=== PATIENT | female | born 1990 | race African-American/Black ===

== ENCOUNTER 2016-04-05 22:07 | Emergency (ER) | payer OTHER ==
[~2016-04-05] VITALS: Ht 160 cm; Wt 75.0 kg
[~2016-04-05 22:07] MED LIST: CITA40TA13 PO; HYDR2TAB28 PO; INSU100V7 SUBQ; LOV100 SUBQ; NORE1PAT7 TD; OMEP20CA11 PO
[2016-04-05 22:16] VITALS: BP 123/88; PULSE 77; RESP 16; O2SAT 100
--- NOTE | 2016-04-05 22:39 | ED.REPORT ---
HPI-Abd Pain F Under 40 Date of Service Apr 05, 2016 ED Provider: Jace Green DO A 25 year old female with a history of necrotizing pancreatitis, biliary stent, and pancreatic drain placement presents to the ED complaining of upper abdominal pain. The pt began experiencing abdominal pain one week ago. At that time she was also experiencing diarrhea, but this has resolved. Over the last three days, the pain has worsened and she has begun vomiting. She denies fever or dysuria. The pt suspects that these symptoms may be due to pancreatitis, and states that this would be the "first relapse in a while." The pt's toy designer, Dr. Olguin, has ordered labs and a CT scan that have not yet been completed. Nursing Notes Stated Complaint: POSS PANCREATITIS Chief Complaint: Female Abdominal Pain Nursing Notes Reviewed: Yes Allergies: Coded Allergies: No Known Allergies (Unverified , 04/05/16) Scheduled Citalopram (Citalopram) 40 Mg Tablet 40 MG PO DAILY Insulin Glargine (Lantus U100 Insulin Vial) 100 Unit/Ml Vial 5 UNIT SUBQ HS Norelgestromin/Ethin.estradiol (Xulane Patch) 1 Each Patch.tdwk 1 EACH TD WEEKLY change on Mondays Omeprazole (Omeprazole) 20 Mg Capsule.dr 20 MG PO DAILY Scheduled PRN Enoxaparin (Lovenox) 100 Mg/Ml Syringe 90 MG SUBQ BID PRN PRN blood clot Hydromorphone (Hydromorphone) 2 Mg Tablet 2 MG PO QID PRN PRN Pain General Time Seen by MD: 22:39 Chief Complaint Abdominal pain Hx Obtained From: Patient, Other family... (Mother) Arrived By: Walk-in Sudden in Onset?: No Onset Occurred: 1 week ago Symptom Duration: Since onset Recent Healthcare: No recent hospitalization, Recent doctor visit Similar Sx Previous: Yes Past Medical History Past Medical History Notes: Extruding Press Adjuster: Dr. 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 Past Medical History Necrotizing pancreatitis Reports: Depression Past Surgical History Pancreatic drain placed Biliary stent Family History gall stones Smoking History Never Smoker Social History Alcohol Use: Denies alcohol use Drug Use: THC Other Social History: Good social support Ambulatory Status Independent Review of Systems Constitutional: Denies: Fever Respiratory: Denies: Non-productive cough, Shortness of breath Cardiovascular: Denies: Chest pain GI: Reports: Abdominal pain, Diarrhea (resolved), Nausea, Vomiting Female: Denies: Dysuria Musculoskeletal: Denies: Back pain, Neck pain Complete sys rev & neg: except as marked. Physical Exam Initial Vital Signs Vital Signs (First) Date Time Temp Pulse Resp B/P Pulse Ox O2 Delivery O2 Flow Rate FiO2 04/05/16 22:16 36.9 77 16 123/88 100 Room Air Initial VS: Reviewed General/Constitutional: Awake, Alert Respiratory / Chest: Atraumatic, Breath sounds NL, Breath sounds = bilat, No respiratory distress Cardiovascular: Heart rate NL, Regular rhythm, Heart sounds NL Abdomen: Atraumatic, Soft epigastric tenderness Back: Atraumatic, Full range of motion Head / Eyes: Atraumatic, Normocephalic, PERRL, EOMI ENT: Atraumatic, Airway patent, Mucous membranes moist Skin: Atraumatic, Color NL, No rash, Warm, Dry Neurologic: Oriented X3, Speech NL, No motor deficits, No sensory deficits Neck: Atraumatic, Supple, Full range of motion Upper Extremity / MS: Atraumatic, Full range of motion Lower Extremity / Pelvis / MS: Atraumatic, Full range of motion Psychiatric: Affect NL, Mood NL Interpretation & Diagnostics Lab Results Interpretation Result Diagram: 04/05/16 2300 04/05/16 2300 Test 04/05/16 23:00 White Blood Count 9.7th/mm3 (3.8-10.1) Red Blood Count 4.90mil/mm3 (3.90-5.20) Hemoglobin 12.9g/dL (12.0-15.6) Hematocrit 39.5% (35.0-46.0) Mean Corpuscular Volume 80.6fL (81-100) Mean Corpuscular Hemoglobin 26.3pg (27.0-35.0) Mean Corpuscular Hemoglobin Concent 32.7% (32.0-37.0) Red Cell Distribution Width 16.6% (12.3-15.4) Platelet Count 209bil/L (150-400) Neutrophils (%) (Auto) 77.8% (40-74) Lymphocytes (%) (Auto) 14.7% (14-46) Monocytes (%) (Auto) 6.5% (4-12) Eosinophils (%) (Auto) 0.4% (0-5) Basophils (%) (Auto) 0.3% (0-3) Band Neutrophils % 0% (1-5) Prothrombin Time 11.1sec (8.1-12.5) Prothromb Time International Ratio 1.04ratio Sodium Level 127mEq/L (134-144) Potassium Level 4.5mEq/L (3.5-5.2) Chloride Level 82mEq/L (97-108) Carbon Dioxide Level 30mmol/L (18-29) Blood Urea Nitrogen 7mg/dL (6-20) Creatinine 0.62mg/dL (0.57-1.00) Estimat Glomerular Filtration Rate 148mL/min (>59) Glucose Level 740mg/dL (60-99) Calcium Level 9.7mg/dL (8.5-10.1) Magnesium Level 2.0mg/dL (1.6-2.6) Total Bilirubin 0.4mg/dL (0.0-1.2) Aspartate Amino Transf (AST/SGOT) 21U/L (0-50) Alanine Aminotransferase (ALT/SGPT) 24U/L (0-32) Alkaline Phosphatase 195U/L (25-150) Total Protein 7.7g/dL (6.4-8.4) Albumin 4.0g/dL (3.4-5.0) Lipase 164U/L (13-60) Hold Terrell Top Tube Received (Received) Ketones Negative (Negative) CT Abd / Pelvis Interpretation CONCLUSION: Evidence for pancreatitis with at least 3 pseudocysts or abscess collections depending on the clinical presentation. There is a drain in the body of the pancreas draining into the stomach. There is cholelithiasis with mild biliary dilation but the patient does have a biliary drain in place. Interpretation / Wet Read by: Interpret - Radiologist Pulse Oximetry Interpretation Pulse Oximetry Interpretation: 100% on room air Pulse Oximetry: Pulse Ox normal Re-Eval/Medical Decision Med Decision/Clinical Course I spoke with Dr. Sophie Mendez, salmon gillnet vessel operator for the patient's toy designer, who recommends transfer to [facility] for GI treatment and work up for pancreatic pseudocyst versus pancreatic abscess. Patient transfer to [facility] is accepted by Dr. Gardner, [facility] hospitalist. Patient is fluid resuscitated and looks significantly better. Her blood sugar is 380 and transfer is pending. Source of Hx: Old records Re-Evaluation/Progress : Time of Eval: 02:23 Patient Status: Condition improved Re-Evaluation/Progress Note: Pt rechecked, who is stable. She is informed of her radiology results, diagnosis, and the need for transfer to . The pt understands and agrees with the plan. All questions are addressed at this time. Consultation #1: Referral / Consult Name: EMMANUEL GARDNER MD Call Returned at: 01:34 Spinning Mule Operator: Agrees with eval, Agrees with plan Note: Spoke to Dr. Sophie Mendez, gastrologist salmon gillnet vessel operator for Dr. 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, regarding pt's case. Dr. Mendez recommends transfer to [facility]. Consultation #2: Referral / Consult Name: EMMANUEL GARDNER MD Call Returned at: 02:05 Spinning Mule Operator: Agrees with eval, Agrees with plan Note: Spoke to Dr. Gardner, [facility] hospitalist. Dr. Gardner accepts pt's transfer to . Counseled Regarding: Diagnosis, Lab results, Need for transfer Discharge & Departure Primary Impression: Pancreatitis Chronicity: acute Pancreatitis type: unspecified pancreatitis type Qualified Code: K85.9 - Acute pancreatitis, unspecified Additional Impression: Pancreatic pseudocyst Disposition: Transfer, Acute Care Facility Discharge Condition All VS Reviewed: Yes Condition: Stable Referrals: OTHER,PHYSICIAN (PCP) Scribe Attestation Portions of this note were transcribed by Alma Sainz. I, Dr. Green personally performed the history, physical exam and medical decision-making; I reviewed and confirmed the accuracy of the information in the transcribed note. Signed by: Chang Rice, 04/06/2016 and 0242. Jace Green DO Apr 05, 2016 22:39 ALMA SAINZ Apr 05, 2016 23:25
[2016-04-05] MEDS ORDERED: Ondansetron 2 mg/mL 2 mL Inj IVPUSH PRN (23:20)
[2016-04-05] MEDS ORDERED: 0.9% Sodium Chloride 1,000 ML IV SCH (23:20)
[2016-04-05] MEDS ORDERED: HYDROmorphone 0.5 mg/0.5 mL iSecure Syringe IVPUSH PRN (23:20)
[2016-04-05 23:33] LABS: INR 1.04 ratio
[2016-04-05 23:34] LABS: Mean Corpuscular Hemoglobin 26.3 pg (27.0-35.0); Mean Corpuscular Volume 80.6 fL (81-100); NEUTROPHILS % (AUTO) 77.8 % (40-74); Platelet Count 209 bil/L (150-400)
[2016-04-05 23:35] LABS: BASOPHILS % (AUTO) 0.3 % (0-3); EOSINOPHILS % (AUTO) 0.4 % (0-5); MONOCYTES % (AUTO) 6.5 % (4-12)
[2016-04-06] MEDS ORDERED: Insulin Human REGular-Omnicell 100 Unit/mL IV ONE (02:00)
[2016-04-06 03:26] VITALS: BP 122/64; PULSE 68; RESP 18; O2SAT 96
--- NOTE | 2016-04-06 13:45 | DRSVH ---
PROCEDURE: CT ABDOMEN AND PELVIS WITH CONTRAST ([id number]) INDICATIONS: abdominal pain, recent pancreatitis TECHNIQUE: After the administration of intravenous contrast, 5 mm thick sections acquired from the diaphragm to the symphysis. 5 mm coronal and sagittal reformats were acquired. For radiation dose reduction, the following was used: automated exposure control, adjustment of mA and/or kV according to patient siz e. COMPARISON: [facility], CT, CT ABD PELVIS W CON, 08/04/2015, 22:43. [facility], CT, CT ABD PELVIS W CON, 08/13/2015, 13:33. FINDINGS: Image quality: Excellent. ABDOMEN: Lung bases: Lung bases are clear. Heart size is normal. Solid organs: Liver and spleen are normal in size and enhancement. The gallbladder is contracted. An ill-defined cholesterol stone is present within the gallbladder fundus. The gallbladder wall appears thickened. There is trace intrahepatic biliary ductal dilatation. A biliary stent is present within the common bile duct which is mildly dilated. The portal vein is patent. The pancreas demonstrates pa tchy, heterogeneous enhancement. There is trace peripancreatic fat stranding, markedly decreased when compared with the prior CT dated 08/13/15. Trace fluid is also present along the paracolic gutters bi laterally. A pancreatic/gastric stent is present extending from near the tail of the pancreas into th e gastric fundus. 3 rim-enhancing peripancreatic fluid collections are present. One near the tail of pancreas which measures 2.3 x 2.3 x 6.2 cm. One at the pancreatic head which measures 11 mm in diamet er, and one in the uncinate process which measures 1.9 x 1.7 x 1.9 cm. No adrenal nodules. There is m ild right hydronephrosis which is new when compared with prior CT dated 08/13/15. No left hydronephros is. Kidneys are symmetric in size and demonstrate symmetric enhancement. No ureterolithiasis or hydro ureter. Peritoneum and bowel: The stomach is partially fluid-filled. There are extensive gastric varices. Margarito wel loops demonstrate normal wall thickness and caliber. The appendix is thin walled and gas filled. No free fluid or air. Nodes and vessels: No retroperitoneal or mesenteric adenopathy by size criteria. Aorta and inferior vena cava are normal in size. Miscellaneous: No ventral hernias. PELVIS: Genitourinary: Bladder wall thickness is normal. The uterus is grossly normal. The right ovary is n ot well visualized. Multiple small cystic lesions are present on the left ovary which may be physiolo gic in a premenopausal female. Miscellaneous: No inguinal hernias or adenopathy. Bones: No suspicious bony lesions. No vertebral body compression fractures. IMPRESSION: 1. 3 rim-enhancing peripancreatic fluid collections. These likely represent small, organized abscesse s resulting from the prior acute pancreatitis dated August,. 2. Trace peripancreatic free fluid or fluid along the paracolic gutters. This finding is suspicious f or recurrent acute pancreatitis. 3. Cholelithiasis. There is mild intra-and extrahepatic biliary dilatation and a stent is present wit hin the common bile duct. These findings are concordant with the overnight interpretation. 3. Extensive gastric varices which were not visualized on the prior studies. The significance of this finding is unclear, but can be associated with portal hypertension. Of note, the portal vein is hughes nt. Dictated by: Ximena Davis M.D. on 04/06/2016 at 10:45 Approved by: Ximena Davis M.D. on 04/06/2016 at 13:42
== END 2016-04-06 02:46 | disposition short-term general hospital (02) ==
LOC: SED 22:07
DX: K85.91 Acute pancreatitis with uninfected necrosis, unspecified (principal); K86.3 Pseudocyst of pancreas; Z79.4 Long term (current) use of insulin
CPT/HCPCS: 36415; 74177; 80053; 81025; 82009; 83690; 83735; 85025; 85610; 96361; 96374; 96375; 99285; J1170; J1815; J2405; J7030; Q9967

== ENCOUNTER 2016-06-11 12:01 | Inpatient (IN) | payer OTHER ==
[~2016-06-11] VITALS: Ht 160 cm; Wt 73.8 kg
[2016-06-11 12:07] VITALS: BP 110/74; PULSE 105; RESP 20; O2SAT 94
--- NOTE | 2016-06-11 12:22 | ED.REPORT ---
HPI-General Illness Date of Service June 11, 2016 ED Provider: Avtar Gonzalez DO Pt is a 25 y/o female w/ a hx of necrotizing pancreatitis in August, IDDM, presenting to the ED c/o epigastric abdominal pain and hyperglycemia onset 3 days ago. She went to see her PCP today at which time she was found to have a blood glucose of 450 along with the presence of large ketones in the urine. The patient saw her PCP on 06/04 at which time her labs indicated blood glucose of 660 with DKA and she was urged to go to the nearest ED although she opted to go home and try to manage it herself with oral fluids and insulin. Her old blood glucose monitor was showing her blood glucose to be in the low 200s although the new monitor showed her blood glucose to be in the 500s. She ran out of insulin 3 days ago and due to some complication with the pharmacy she has not had any since that time. She has been attempting to to decrease her blood sugars by means of dietary changes although there has been no change. She has been taking upwards of 15 units of short-acting insulin and 10 units of long- acting insulin within the past week. Her abdominal pain is exacerbated by eating. She c/o associated chills. Pt denies fever, diarrhea, SOB, nausea, vomiting. Outpatient lab results taken 06/04 significant as below: Sodium: 128 Chloride: 84 CO2: 20 Anion gap: 24 Glucose: 660 BUN: 15 Creatinine: 0.88 Hemoglobin A1C: 16.9% Nursing Notes Stated Complaint: HIGH BLOOD SUGAR,PANCREATITIS Chief Complaint: Female Abdominal Pain Nursing Notes Reviewed: Yes Allergies: Coded Allergies: No Known Allergies (Unverified , 06/11/16) Scheduled Bupropion ER (Wellbutrin SR) 150 Mg Tablet.er 150 MG PO DAILY Ferrous Sulfate (Ferrous Sulfate) 325 Mg Tablet 325 MG PO DAILY Insulin Glargine (Lantus U100 Solostar Insulin Pen) 100 Unit/1 Ml Insuln.pen 15 UNITS SUBQ HS Nystatin (Nystatin) 60 Applic/15 Gm Cream 1 APPLIC TRANSDERM TID Potassium Gluconate (Potassium) 99 Mg Tablet 99 MG PO DAILY Scheduled PRN Hydromorphone (Hydromorphone) 2 Mg Tablet 2-4 MG PO q4 hours PRN PRN Pain Insulin Regular, Human (HUMulin-R U100 Insulin Vial) 100 Unit/1 Ml Vial 10-15 UNITS SUBQ TIDWM PRN PRN AD General Time Seen by MD: 12:21 Chief Complaint Abdominal pain Hx Obtained From: Patient Arrived By: Walk-in Sudden in Onset?: No Onset Occurred: 3 days ago Symptom Duration: Since onset Location: : Abdomen Quality: Painful Radiation: : Does not radiate Severity: Current: Mild Severity: Maximum: Moderate Similar Sx Previous: Yes Past Medical History Past Medical History 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 Past Medical History IDDM Depression Hx acute hepatitis Hx pseudocyst formation Cholelithiasis Hx portal vein thrombosis Hx necrotizing pancreatitis Past Surgical History Pancreatic drain placed Biliary stent Family History gall stones Smoking History Never Smoker Social History Alcohol Use: Denies alcohol use Drug Use: THC Other Social History: Good social support Ambulatory Status Independent Review of Systems Full Review of Systems Constitutional: Reports: Chills, Denies: Fever Respiratory: Denies: Non-productive cough, Shortness of breath Cardiovascular: Denies: Chest pain, Dyspnea on exertion GI: Reports: Abdominal pain, Denies: Diarrhea, Nausea, Vomiting Complete sys rev & neg: except as marked. Physical Exam Vital Signs Vital Signs Date Time Temp Pulse Resp B/P Pulse Ox O2 Delivery O2 Flow Rate FiO2 06/11/16 12:07 36.2 105 20 110/74 94 Room Air Initial VS: Reviewed, Vital signs abnormal Head / Eyes: Atraumatic, Normocephalic, PERRL ENT: Mucous membranes moist, Conjunctiva normal, No scleral icterus Neck: Supple, Full range of motion Respiratory: Breath sounds normal, Clear to auscultation, No respiratory distress Cardiovascular: Regular rate & rhythm, Heart sounds normal, Intact distal pulses Extremities: Vascular intact, Neuro intact, No swelling, No tenderness Skin: Warm, Dry, No cyanosis Neurologic: Alert, Oriented, Nonfocal Psychiatric: Mood/affect normal, Behavior normal, Normal thought content General/Constitutional: Awake, Alert, No acute distress, Cooperative, Not toxic appearing Abdomen: Atraumatic, Soft, No guarding, No rebound, No distention, No palpable mass Tenderness/Guarding/Rebound: Positive: Tender LUQ... (Mild) Interpretation & Diagnostics Lab Results Interpretation Result Diagram: 06/11/16 1221 06/11/16 1221 Test 06/11/16 12:21 06/11/16 12:59 White Blood Count 8.8th/mm3 (3.8-10.1) Red Blood Count 4.90mil/mm3 (3.90-5.20) Hemoglobin 14.4g/dL (12.0-15.6) Hematocrit 44.5% (35.0-46.0) Mean Corpuscular Volume 90.8fL (81-100) Mean Corpuscular Hemoglobin 29.4pg (27.0-35.0) Mean Corpuscular Hemoglobin Concent 32.4% (32.0-37.0) Red Cell Distribution Width 14.9% (12.3-15.4) Platelet Count 249bil/L (150-400) Neutrophils (%) (Auto) 72.1% (40-74) Lymphocytes (%) (Auto) 20.0% (14-46) Monocytes (%) (Auto) 6.8% (4-12) Eosinophils (%) (Auto) 0.3% (0-5) Basophils (%) (Auto) 0.3% (0-3) Sodium Level 125mEq/L (134-144) Potassium Level 4.6mEq/L (3.5-5.2) Chloride Level 77mEq/L (97-108) Carbon Dioxide Level 21mmol/L (18-29) Blood Urea Nitrogen 19mg/dL (6-20) Creatinine 0.77mg/dL (0.57-1.00) Estimat Glomerular Filtration Rate 116mL/min (>59) Glucose Level 928mg/dL (60-99) Lactic Acid Level 2.8mmol/L (0.4-2.0) Calcium Level 10.0mg/dL (8.5-10.1) Magnesium Level 1.9mg/dL (1.6-2.6) Total Bilirubin 0.6mg/dL (0.0-1.2) Aspartate Amino Transf (AST/SGOT) 13U/L (0-50) Alanine Aminotransferase (ALT/SGPT) 15U/L (0-32) Alkaline Phosphatase 96U/L (25-150) Total Protein 8.4g/dL (6.4-8.4) Albumin 4.6g/dL (3.4-5.0) Lipase 117U/L (13-60) Ketones Small (Negative) Urine Color Straw (YELLOW) Urine Appearance Hazy (CLEAR,HAZY) Urine pH 5.5 (5.0-8.0) Urine Specific [place] 1.005 (1.003-1.035) Urine Protein Negativemg/dL (NEG,TRACE) Urine Glucose (UA) >1000mg/dL (NEGATIVE) Urine Ketones >80mg/dL (NEGATIVE) Urine Occult Blood Negative (NEGATIVE) Urine Nitrite Negative (NEGATIVE) Urine Bilirubin Negative (NEGATIVE) Urine Urobilinogen Normalmg/dL (NORMAL) Urine Leukocyte Esterase Negative (NEGATIVE) Urine RBC 0-2/hpf (0-2) Urine WBC 0-5/hpf (0-5) Urine Epithelial Cells Occasional/hpf (NONE-MOD) Urine Crystals None seen (NONE SEEN) Urine Bacteria Few/hpf (NONE-FEW) Urine Hyaline Casts None/lpf (NONE) Urine Granular Casts None seen (NONE SEEN) Urine Waxy Casts None seen (NONE SEEN) Urine Red Blood Cell Casts None seen (NONE SEEN) Urine White Blood Cell Casts None seen (NONE SEEN) Urine Mucus None seen (None Seen) Urine Trichomonas None seen (NONE SEEN) Urine Yeast None (NONE SEEN) Urinalysis Comment None Urine Culture Reflexed Not indicated Lab Results Interpretation: Venous blood gas 12:39: pH ____7.298 - pCO2 ___48.2__ -mmHg pO2 ___31.4__ -mmHg HCO3- ___22.9__ -mmol/L ABE ___-3.2__ -mmol/L tHb ___12.3__ -g/dL O2Hb ___50.7__ -% COHb ____1.5__ -% MetHb ____1.2__ -% sO2 ___52.1__ -% FIO2 ___21.0__ -% ECG Interpretation Time: 12:55 Interpreted by: ED physician Normal ECG Interpretation: Normal ECG w/ rate of... (92), Normal rate, Normal sinus rhythm, No acute ischemic changes, Normal QRS, Normal axis, Normal intervals, No change from prior ECGs, Adequate tracing Re-Eval/Medical Decision Med Decision/Clinical Course DKA due to lack of insulin, will admit on insulin drip. Source of Hx: Old records Time of Eval: 13:46 Re-Evaluation/Progress Note: Pt rechecked. Informed pt of need for admission due to DKA. Pt understands and agrees with plan for admission. All questions addressed. Consultation : Referral / Consult Name: Jeremy Murray MD Consulted With: Hospitalist Call Returned at: 14:38 Traffic Sign Erection Supervisor: Will see patient, Agrees with eval, Agrees with plan, Accepts admit Counseled Regarding: Diagnosis, Lab results, Need for admission Discharge & Departure Primary Impression: DKA (diabetic ketoacidosis) Diabetes mellitus type: type 1 Diabetes mellitus complication detail: without coma Qualified Code: E10.10 - Type 1 diabetes mellitus with ketoacidosis without coma Disposition: ADMITTED TO HOSPITAL Discharge Condition All VS Reviewed: Yes Condition: Stable Referrals: OTHER,PHYSICIAN (PCP) Crit Care Except Billable Proc Time Spent: 30-74 minutes Services Performed: Patient management by me, Time spent at bedside, Reviewing test results Critical Care Notes: See MDM Scribe Attestation Portions of this note were transcribed by Jake Aguirre. I, Dr. Gonzalez personally performed the history, physical exam and medical decision-making; I reviewed and confirmed the accuracy of the information in the transcribed note. Signed by Chang Coffey, 06/11/16 - 0240 Avtar Gonzalez DO June 11, 2016 12:22 JAKE AGUIRRE June 11, 2016 12:52
[2016-06-11] MEDS ORDERED: 0.9% Sodium Chloride 1,000 ML IV ONE ×2 (12:23→12:25)
[2016-06-11] MEDS ORDERED: Ondansetron 2 mg/mL 2 mL Inj IV PRN (12:25)
[2016-06-11] MEDS ORDERED: HYDROmorphone 0.5 mg/0.5 mL iSecure Syringe IVPUSH PRN (12:25)
--- NOTE | 2016-06-11 12:46 | ABG ---
DateTimeAnalyzed 12:41:00 -_ pH ____7.298 - pCO2 ___48.2__ -mmHg pO2 ___31.4__ -mmHg HCO3- ___22.9__ -mmol/L ABE ___-3.2__ -mmol/L tHb ___12.3__ -g/dL O2Hb ___50.7__ -% COHb ____1.5__ -% MetHb ____1.2__ -% sO2 ___52.1__ -% FIO2 ___21.0__ -% Drawn By rn - Date/Time Notified____ 12:46:00 -_ Oxygen Device 1 _ROOM AIR - Notified By jj - Notified Whom dr okelley - B 763 -mmHg tO2 ____8.8__ -Vol% Jeremy test N/A -
[2016-06-11 12:49] LABS: BASOPHILS % (AUTO) 0.3 % (0-3); EOSINOPHILS % (AUTO) 0.3 % (0-5); MONOCYTES % (AUTO) 6.8 % (4-12); Mean Corpuscular Hemoglobin 29.4 pg (27.0-35.0); Mean Corpuscular Volume 90.8 fL (81-100); NEUTROPHILS % (AUTO) 72.1 % (40-74); Platelet Count 249 bil/L (150-400)
[2016-06-11 13:19] LABS: APPEARANCE,URINE HAZY (CLEAR,HAZY); COLOR,URINE STRAW (YELLOW)
[2016-06-11 13:20] LABS: OCCULT BLOOD,URINE NEGATIVE (NEGATIVE); PH,URINE 5.5 (5.0-8.0); UROBILINOGEN,URINE NORMAL (NORMAL)
[2016-06-11 13:27] LABS: Lipase 117 U/L (13-60); Magnesium 1.9 mg/dL (1.6-2.6)
[2016-06-11] MEDS ORDERED: Insulin Human REGular Inj 100 UNIT in 0.9% Sodium Chloride 100 ML IV SCH (13:35)
[2016-06-11] MEDS ORDERED: MYCC TRANSDERM (14:41)
[2016-06-11] MEDS ORDERED: BUPR150T8 PO (14:41)
[2016-06-11] MEDS ORDERED: INSU100I13 SUBQ (14:42)
[2016-06-11] MEDS ORDERED: FERR-83 PO (14:42)
[2016-06-11] MEDS ORDERED: INSU100V28 SUBQ (14:42)
[2016-06-11] MEDS ORDERED: POTA99TA21 PO (14:42)
[2016-06-11] MEDS ORDERED: Ondansetron 2 mg/mL 2 mL Inj IVPUSH PRN ×2 (14:50→15:30)
[2016-06-11] MEDS ORDERED: Alum-Mag Hydrox-Simeth 30 mL Suspension PO PRN ×2 (14:50→15:30)
[2016-06-11 15:06] VITALS: BP 102/65; PULSE 95; RESP 20; O2SAT 99
[2016-06-11] MEDS ORDERED: Senna-Docusate 8.6-50 mg Tablet PO PRN (15:30)
[2016-06-11] MEDS ORDERED: Polyethylene Glycol (PEG) 17 Gm Powder PO PRN (15:30)
--- NOTE | 2016-06-11 15:33 | NUR ---
Pt admitted to CCU from ER at 1530hrs Pt denies any pain or nausea and vomiting at this time. VS are stable although HR is elevated at 96 sinus, she is receiving IVF's and insulin IV now per DKA protocol.
[2016-06-11 16:00] VITALS: BP 98/58; PULSE 92; RESP 18; O2SAT 96
[2016-06-11] MEDS ORDERED: Insulin Human REGular Inj 100 UNIT in 0.9% Sodium Chloride-Pha MIX 100 ML IV SCH (16:00)
[2016-06-11 17:53] LABS: Phosphorus 2.8 mg/dL (2.5-4.9)
--- NOTE | 2016-06-11 18:16 | PCM.HPMED ---
Subjective Date of Service June 11, 2016 Primary Provider: Admitting Physician: Jeremy Murray MD Primary Care Physician: Other,Physician Attending Physician: Jeremy Murray MD Chief Complaint: Abdominal pain and hyperglycemia History of Present Illness: Vishnu Ratliff is a 25 year old woman with past medical history significant for necrotizing pancreatitis due to gall stones in August 2015, subsequent insulin -dependent diabetes mellitus, who presented to the [facility] ED with complaint of mild abdominal pain and severe hyperglycemia that first started 6 days ago. The patient was feeling well and was seen by her PCP for a routine appointment on at which time she was found to have a blood glucose of 660 with a large amount of ketones in the urine. Her PCP referred her to the ED but she refused as she was feeling fine and wanted to control her blood sugar herself at home. As she tried to manage her DKA at home, her glucose monitor showed readings of around 200 however when rechecked at her PCP's office she was noted to have glucose in the 500s. She realized she was under-treating her sugars and increased her Lantus from 5 units to 10 units. She subsequently ran out of insulin due to issues at the pharmacy. She has been attempting to to decrease her blood sugars by means of dietary changes although there has been no change. She has been taking upwards of 15 units of short-acting insulin and 10 units of long-acting insulin within the past week. Overall she states she feels fine and she would not have come in if her sugars were not elevated and she was not urged by her PCP. She denies any significant abdominal pain, shortness of breath , cough, fevers, chills, chest pain, vomiting, nausea or diarrhea. Outpatient lab results taken 06/04 significant as below: Sodium: 128 Chloride: 84 CO2: 20 Anion gap: 24 Glucose: 660 BUN: 15 Creatinine: 0.88 Hemoglobin A1C: 16.9% In the ED her vitals were stable. She was started on the DKA insulin protocol, given 1 L of NS and Zofran. Review of Systems: A comprehensive review of systems was conducted with the patient and found to be negative except as above in the History of Present Illness. Allergies Coded Allergies: No Known Allergies (Unverified , 06/11/16) Home Medications Scheduled Bupropion ER (Wellbutrin SR) 150 Mg Tablet.er 150 MG PO DAILY Ferrous Sulfate (Ferrous Sulfate) 325 Mg Tablet 325 MG PO DAILY Insulin Glargine (Lantus U100 Solostar Insulin Pen) 100 Unit/1 Ml Insuln.pen 15 UNITS SUBQ HS Nystatin (Nystatin) 60 Applic/15 Gm Cream 1 APPLIC TRANSDERM TID Potassium Gluconate (Potassium) 99 Mg Tablet 99 MG PO DAILY Scheduled PRN Hydromorphone (Hydromorphone) 2 Mg Tablet 2-4 MG PO q4 hours PRN PRN Pain Insulin Regular, Human (HUMulin-R U100 Insulin Vial) 100 Unit/1 Ml Vial 10-15 UNITS SUBQ TIDWM PRN PRN AD PMH IDDM Depression Acute hepatitis Pancreatic pseudocyst formation Cholelithiasis Portal vein thrombosis Necrotizing pancreatitis Surgical History Pancreatic drain placed Biliary stent x 8 Family History Gall stones Social History Hx Alcohol Use: No Hx Substance Use: Yes (medicinal marijuana) Hx Tobacco Use: No Smoking Status: Never Smoker Exam Vital Signs Vital Sign - Last Date Time Temp Pulse Resp B/P Pulse Ox O2 Delivery O2 Flow Rate FiO2 06/11/16 15:06 36.6 95 20 102/65 99 Room Air Exam General: No acute distress, well-developed, well-nourished, appropriately interactive HEENT: Normocephalic, atraumatic. External ears without defect. Pupils equal, round, and reactive to light and accommodation. Anicteric sclerae, moist conjunctivae, and no lid lag. Oropharynx free of erythema and cobble stoning with moist mucosa. Neck: Supple with full range of motion. No jugular venous distension. No bruits. No lymphadenopathy or thyromegaly. Cardiovascular: Regular rate and rhythm with no murmurs, rubs, or gallops appreciated Pulmonary: Clear to auscultation bilaterally with no crackles, wheezes, or rhonchi. Normal respiratory effort with no use of accessory muscles. Abdomen: Bowel tones present. Soft, nontender, nondistended. No hepatosplenomegaly or masses appreciated. Extremities: No clubbing, cyanosis, edema, or lymphadenopathy appreciated. Skin: Normal temperature, turgor, and texture; no rash, ulcers, or subcutaneous nodules appreciated. Neurological: Cranial nerves grossly intact. Normal muscle strength, tone, and bulk. Reflexes, coordination, and sensory function within normal limits. No known gait impairment. Psychiatric: Normal mood and affect. Alert and oriented to person, place, and time. Lab and Diagnostics Result Diagram: 06/11/16 1221 06/11/16 1221 Additional Diagnostics: Venous blood gas Date Time Analyzed 12:41:00 -_ pH ____7.298 - pCO2 ___48.2__ -mmHg pO2 ___31.4__ -mmHg HCO3- ___22.9__ -mmol/L Assessment & Plan Vishnu Ratliff is a 25 year old woman with past medical history significant for necrotizing pancreatitis due to gall stones in August 2015, subsequent insulin -dependent diabetes mellitus, who presented to the [facility] ED with complaint of mild abdominal pain and severe hyperglycemia that first started 6 days ago. Diabetic ketoacidosis in the setting of type 1-like diabetic, present on admission -Likely secondary to non-compliance, no evidence of infection. -Anion Gap 27 with hyperlactatemia of 2.8, will continue to check BMP Q4 -DKA protocol initiated by the ED, will continue with clarification: -NS at 200 ml/hr, when blood glucose is <250 but the patient still has a gap > 12 switch to D5 1/2NS at 150 ml/hr -If glucose consistently <150 for one hour, contact provider. Do not simply stop insulin drip. -Continue insulin drip until gap <12. Keep glucose between 150-200 until gap is <12. -When gap <12, contact provider for long acting insulin orders. Please overlap insulin drip with long acting insulin by at least 1 hour. -If K <4.5, contact provider. If K is under 4.5 add add 40 mEq K to IVF: NS + 40 mEq K at 200 mL/hour (MAX RATE: peripheral 250 mL/hr) OR if blood glucose <200 AND anion gap >12: Give D51/2NS +40 mEq K at 200 mL/hour (MAX RATE same as above) -When K >5.3 stop fluid with K and switch back to NS or D51/2NS at prior rate. -Do not stop insulin unless potassium drops <3. Insulin dependent diabetes mellitus secondary to severe pancreatitis, poorly controlled -Most recent A1C 16.9% -Patient is essentially a type 1. At minimum she needs at least 20 units of Lantus with 6 units of Lispro with meals. -She has not yet seen endocrinology and is on scheduled 5 units of Lantus daily. -She would benefit from diabetic education, outpatient endocrinology and would likely do well with an insulin pump. Mixed anion gap and non anion gap metabolic acidosis -Delta delta of 5 suggesting mixed acidosis -Venous pH of 7.298, venous CO2 of 48.2 possibly suggestive of respiratory acidosis although VBGs correlate poorly to ABGs in settings other than normocapnia. -Consider repeat ABG in am. Possible pancreatitis, acute on chronic -Patient denies any abdominal pain and has no tenderness on exam -Lipase elevated at 117, unclear if this represents true acute pancreatitis or is a chronic elevation -Will continue to monitor, consider repeating in the AM. CODE STATUS: FULL CODE Patient is admitted under inpatient status with expected length of stay greater than 2 midnights due to severity of presenting symptoms, risk of adverse event, and complexity of treatment plan. Time spent 60 minutes Attending Statement The patient was seen and examined with the resident house staff. Agree with all attached documentation. Kathy Lutz DO June 11, 2016 15:24 Jeremy Murray MD June 12, 2016 07:34
[2016-06-11] MEDS: 0.9% Sodium Chloride 1,000 ML IV SCH ×2 (20:23→22:35)
[2016-06-11 20:30] VITALS: BP 84/56; PULSE 92; RESP 21; O2SAT 99
[2016-06-11] MEDS: Heparin 5,000 Unit/mL Inj SUBQ SCH (20:30)
[2016-06-11] MEDS ORDERED: Insulin Human REGular 100 Units/100 mL NS IV SCH ×2 (23:35)
[2016-06-12 00:30] VITALS: BP 88/58; PULSE 88; RESP 17; O2SAT 97
[2016-06-12 04:30] VITALS: BP 85/50; PULSE 75; RESP 15; O2SAT 100
[2016-06-12] MEDS: 0.9% Sodium Chloride 1,000 ML IV SCH ×3 (04:37→11:23)
--- NOTE | 2016-06-12 07:42 | NUR ---
P: c/o hunger I: pt eating during DKA insulin protocol E: Per Dr. Olson transition pt from DKA to NonDKA protocol and pt place on ADA diet. Anion gap at 14. Pt and mother wanting to go home. Dr Olson spoke w/ pt and mother and both deciding to stay. Denies pain, dyspnea, N/V. Up ambulating w/ mother. SBP 80s/50-60s. Pt denying any sx of dizzy, light headedness when up ambulating. NS gentle bolus along w/ IVF at 200ml/hr per Dr Oslon. No change in BP w/ IVFs. Tele SR, 1st AVB. Pt sleeping solid since MN. Dark yellow, cloudy UOP.
[2016-06-12 08:00] VITALS: PULSE 74
[2016-06-12] MEDS ORDERED: Insulin Human NPH-Reg 70-30 100 Unit/mL 3 mL Pen SUBQ ONE (08:20)
[2016-06-12] MEDS: Heparin 5,000 Unit/mL Inj SUBQ SCH (08:30)
[2016-06-12 08:55] VITALS: BP 95/62; PULSE 75; RESP 14; O2SAT 97
--- NOTE | 2016-06-12 09:25 | PCM.DIMED ---
Kathy Lutz DO 06/12/16 0925: Discharge Instructions Date of Service June 12, 2016 Dates of Hospitalization June 11, 2016 at 14:54 Discharge Diagnosis Discharge Diagnosis Diabetic ketoacidosis in the setting of type 1-like diabetic, present on admission Insulin dependent diabetes mellitus secondary to severe pancreatitis, poorly controlled Mixed anion gap and non anion gap metabolic acidosis Possible pancreatitis, acute on chronic Medication Instructions PLEASE INCREASE YOUR LANTUS TO 20 UNITS NIGHTLY. PLEASE INCREASE YOUR MEAL TIME INSULIN TO 7 UNITS. Diet Diabetic Activity Limited until seen by PCP Call your provider Fever or Chills, Excessive diarrhea Patient Instructions Please follow up with your PCP. It is paramount that you establish with an home care physical therapist. I will refer you to Dr. Kramer. You may want to consider an insulin pump but this discussion should be done with the home care physical therapist. Please increase your overall insulin. Please continue to monitor your sugar at least 3 times a day. You will need to attain better control of your blood sugars to avoid complications from diabetes. Follow-up with PCP in: 1 week Provider: Hakan Kramer MD Follow-up in: 3 weeks Jeremy Murray MD 06/13/16 1546: Discharge Instructions Attending's Statement Patient seen and examined with house staff. Agree with all attached documentation. Kathy Lutz DO June 12, 2016 09:25 Jeremy Murray MD June 13, 2016 15:46
[2016-06-12] MEDS ORDERED: [UNRECOGNIZED DRUG - CODE] MC (09:28)
[2016-06-12] MEDS ORDERED: INSU500I SQ (09:28)
[2016-06-12] MEDS ORDERED: INSU100I13 SUBQ (09:28)
--- NOTE | 2016-06-12 10:44 | NUR ---
DM diet ed DM diet education completed. Please see Inpt DM screen & Assmt under Care Activity for further information.
--- NOTE | 2016-06-12 11:32 | NUR ---
Discharge Note: Discussed discharge instructions and medications with patient. Hardcopy Rx was handed to patient along with educational information for ea. medication. Pt verbalized understanding of follow-up appointments. IV DC'd intact by RN. KRIS. Pt ambulating and able to dress self without report of dizziness, CP, SOB. Tolerating PO intake without report of N/V/D. Pt exited unit via WC with all personal belongings and was transported home by her brother.
--- NOTE | 2016-06-12 22:31 | PCM.DC.MED ---
Discharge Summary Date of Service June 12, 2016 Dates of Hospitalization Date of Hospital Admission June 11, 2016 at 14:54 Date of Discharge: June 12, 2016 Providers: Admitting Physician: Jeremy Murray MD Primary Care Physician: Other,Physician Attending Physician: Jeremy Murray MD Diagnosis at Time of Discharge Diagnosis at Time of Discharge Diabetic ketoacidosis in the setting of type 1-like diabetic, present on admission Insulin dependent diabetes mellitus secondary to severe pancreatitis, poorly controlled Mixed anion gap and non anion gap metabolic acidosis Possible pancreatitis, acute on chronic Procedures Other Diagnostics Venous blood gas Date Time Analyzed 12:41:00 -_ pH ____7.298 - pCO2 ___48.2__ -mmHg pO2 ___31.4__ -mmHg HCO3- ___22.9__ -mmol/L Brief History Vishnu Ratliff is a 25 year old woman with past medical history significant for necrotizing pancreatitis due to gall stones in August 2015, subsequent insulin -dependent diabetes mellitus, who presented to the [facility] ED with complaint of mild abdominal pain and severe hyperglycemia that first started 6 days ago. The patient was feeling well and was seen by her PCP for a routine appointment on at which time she was found to have a blood glucose of 660 with a large amount of ketones in the urine. Her PCP referred her to the ED but she refused as she was feeling fine and wanted to control her blood sugar herself at home. As she tried to manage her DKA at home, her glucose monitor showed readings of around 200 however when rechecked at her PCP's office she was noted to have glucose in the 500s. She realized she was under-treating her sugars and increased her Lantus from 5 units to 10 units. She subsequently ran out of insulin due to issues at the pharmacy. She has been attempting to to decrease her blood sugars by means of dietary changes although there has been no change. She has been taking upwards of 15 units of short-acting insulin and 10 units of long-acting insulin within the past week. Overall she states she feels fine and she would not have come in if her sugars were not elevated and she was not urged by her PCP. She denies any significant abdominal pain, shortness of breath , cough, fevers, chills, chest pain, vomiting, nausea or diarrhea. Outpatient lab results taken 06/04 significant as below: Sodium: 128 Chloride: 84 CO2: 20 Anion gap: 24 Glucose: 660 BUN: 15 Creatinine: 0.88 Hemoglobin A1C: 16.9% In the ED her vitals were stable. She was started on the DKA insulin protocol, given 1 L of NS and Zofran. Hospital Course Vishnu Ratliff is a 25 year old woman with past medical history significant for necrotizing pancreatitis due to gall stones in August 2015, subsequent insulin -dependent diabetes mellitus, who presented to the [facility] ED with complaint of mild abdominal pain and severe hyperglycemia that first started 6 days ago. Diabetic ketoacidosis in the setting of type 1-like diabetic, present on admission -Likely secondary to non-compliance, no evidence of infection. -DKA protocol initiated, given NPH in the AM Insulin dependent diabetes mellitus secondary to severe pancreatitis, poorly controlled -Most recent A1C 16.9% -Patient is essentially a type 1. At minimum she needs at least 20 units of Lantus with 6 units of Lispro with meals. -She has not yet seen endocrinology and is on scheduled 5 units of Lantus daily. -She would benefit from diabetic education, provided inpatient, should continued outpatient, outpatient endocrinology and would likely do well with an insulin pump. Mixed anion gap and non anion gap metabolic acidosis, resolved -Delta delta of 5 suggesting mixed acidosis -Venous pH of 7.298, venous CO2 of 48.2 possibly suggestive of respiratory acidosis although VBGs correlate poorly to ABGs in settings other than normocapnia. Possible pancreatitis, acute on chronic -Patient denies any abdominal pain and has no tenderness on exam Exam Vital Signs (Last) Date Time Temp Pulse Resp B/P Pulse Ox O2 Delivery O2 Flow Rate FiO2 06/12/16 08:55 36.6 75 14 95/62 97 Room Air Exam General: No acute distress, well-developed, well-nourished, appropriately interactive HEENT: Normocephalic, atraumatic. External ears without defect. Pupils equal, round, and reactive to light and accommodation. Anicteric sclerae, moist conjunctivae, and no lid lag. Oropharynx free of erythema and cobble stoning with moist mucosa. Neck: Supple with full range of motion. No jugular venous distension. No bruits. No lymphadenopathy or thyromegaly. Cardiovascular: Regular rate and rhythm with no murmurs, rubs, or gallops appreciated Pulmonary: Clear to auscultation bilaterally with no crackles, wheezes, or rhonchi. Normal respiratory effort with no use of accessory muscles. Abdomen: Bowel tones present. Soft, nontender, nondistended. No hepatosplenomegaly or masses appreciated. Extremities: No clubbing, cyanosis, edema, or lymphadenopathy appreciated. Skin: Normal temperature, turgor, and texture; no rash, ulcers, or subcutaneous nodules appreciated. Neurological: Cranial nerves grossly intact. Normal muscle strength, tone, and bulk. Reflexes, coordination, and sensory function within normal limits. No known gait impairment. Psychiatric: Normal mood and affect. Alert and oriented to person, place, and time. Test 06/11/16 12:21 06/11/16 12:59 06/11/16 15:50 06/12/16 06:15 White Blood Count 8.8th/mm3 (3.8-10.1) Red Blood Count 4.90mil/mm3 (3.90-5.20) Hemoglobin 14.4g/dL (12.0-15.6) Hematocrit 44.5% (35.0-46.0) Mean Corpuscular Volume 90.8fL (81-100) Mean Corpuscular Hemoglobin 29.4pg (27.0-35.0) Mean Corpuscular Hemoglobin Concent 32.4% (32.0-37.0) Red Cell Distribution Width 14.9% (12.3-15.4) Platelet Count 249bil/L (150-400) Neutrophils (%) (Auto) 72.1% (40-74) Lymphocytes (%) (Auto) 20.0% (14-46) Monocytes (%) (Auto) 6.8% (4-12) Eosinophils (%) (Auto) 0.3% (0-5) Basophils (%) (Auto) 0.3% (0-3) Hemoglobin A1c 16.8% (4.8-5.6) Magnesium Level 1.9mg/dL (1.6-2.6) Total Bilirubin 0.6mg/dL (0.0-1.2) Aspartate Amino Transf (AST/SGOT) 13U/L (0-50) Alanine Aminotransferase (ALT/SGPT) 15U/L (0-32) Alkaline Phosphatase 96U/L (25-150) Total Protein 8.4g/dL (6.4-8.4) Albumin 4.6g/dL (3.4-5.0) Lipase 117U/L (13-60) Ketones Small (Negative) Urine Color Straw (YELLOW) Urine Appearance Hazy (CLEAR,HAZY) Urine pH 5.5 (5.0-8.0) Urine Specific [place] 1.005 (1.003-1.035) Urine Protein Negativemg/dL (NEG,TRACE) Urine Glucose (UA) >1000mg/dL (NEGATIVE) Urine Ketones >80mg/dL (NEGATIVE) Urine Occult Blood Negative (NEGATIVE) Urine Nitrite Negative (NEGATIVE) Urine Bilirubin Negative (NEGATIVE) Urine Urobilinogen Normalmg/dL (NORMAL) Urine Leukocyte Esterase Negative (NEGATIVE) Urine RBC 0-2/hpf (0-2) Urine WBC 0-5/hpf (0-5) Urine Epithelial Cells Occasional/hpf (NONE-MOD) Urine Crystals None seen (NONE SEEN) Urine Bacteria Few/hpf (NONE-FEW) Urine Hyaline Casts None/lpf (NONE) Urine Granular Casts None seen (NONE SEEN) Urine Waxy Casts None seen (NONE SEEN) Urine Red Blood Cell Casts None seen (NONE SEEN) Urine White Blood Cell Casts None seen (NONE SEEN) Urine Mucus None seen (None Seen) Urine Trichomonas None seen (NONE SEEN) Urine Yeast None (NONE SEEN) Urinalysis Comment None Urine Culture Reflexed Not indicated Osmolality 306 (275-300) Lactic Acid Level 1.3mmol/L (0.4-2.0) Phosphorus Level 2.8mg/dL (2.5-4.9) Sodium Level 139mEq/L (134-144) Potassium Level 3.9mEq/L (3.5-5.2) Chloride Level 107mEq/L (97-108) Carbon Dioxide Level 24mmol/L (18-29) Blood Urea Nitrogen 10mg/dL (6-20) Creatinine 0.58mg/dL (0.57-1.00) Estimat Glomerular Filtration Rate 160mL/min (>59) Glucose Level 117mg/dL (60-99) Calcium Level 8.3mg/dL (8.5-10.1) Discharge Medications Discharge Medications Bupropion ER (Wellbutrin SR) 150 Mg Tablet.er 150 MG PO DAILY (Reported) Ferrous Sulfate (Ferrous Sulfate) 325 Mg Tablet 325 MG PO DAILY (Reported) Insulin Glargine (Lantus U100 Solostar Insulin Pen) 100 Unit/1 Ml Insuln.pen 20 UNIT SUBQ HS Prescribed by: YOUNG LUTZ DO Insulin Regular, Human (Humulin R U-500 Kwikpen) 500/Ml (3) Insuln.pen 10 UNIT SQ TIDAC Prescribed by: YOUNG LUTZ DO Nystatin (Nystatin) 60 Applic/15 Gm Cream 1 APPLIC TRANSDERM TID (Reported) Potassium Gluconate (Potassium) 99 Mg Tablet 99 MG PO DAILY (Reported) As needed Hydromorphone (Hydromorphone) 2 Mg Tablet 2-4 MG PO q4 hours PRN PRN Pain ( Reported) Durable Medical Equipment Lancets (Pro Comfort Lancet) 31 Gauge Each 1 EACH [facility] (DME) Prescribed by: YOUNG LUTZ DO Additional med instructions PLEASE INCREASE YOUR LANTUS TO 20 UNITS NIGHTLY. PLEASE INCREASE YOUR MEAL TIME INSULIN TO 7 UNITS. Followup Plan Disposition: Home, with family Discharge Diet: Diabetic Discharge Activity: Limited until seen by PCP Patient Instructions Please follow up with your PCP. It is paramount that you establish with an framing mill supervisor. I will refer you to Dr. Kramer. You may want to consider an insulin pump but this discussion should be done with the framing mill supervisor. Please increase your overall insulin. Please continue to monitor your sugar at least 3 times a day. You will need to attain better control of your blood sugars to avoid complications from diabetes. Follow-up with PCP in: 1 week Provider: Hakan Kramer MD Follow-up in: 3 weeks Time spent 45 min Attending Statement Patient seen and examined with house staff. Agree with all attached documentation. Young Lutz DO June 12, 2016 22:31 Jeremy Murray MD June 13, 2016 15:57
== END 2016-06-12 11:35 | disposition home or self-care (01) | DRG 637 ==
LOC: SED 12:01 → CCU 14:54 → PCC 06-12 07:57
PROVIDERS: ADMIT Hospitalist; ATTEND Hospitalist
PROC: 4A033R1 Measurement of Arterial Saturation, Peripheral, Percutaneous Approach (ICD-10-PCS; principal; 2016-06-11)
DX: E10.10 Type 1 diabetes mellitus with ketoacidosis without coma (principal); K85.90 Acute pancreatitis without necrosis or infection, unspecified; Z79.4 Long term (current) use of insulin; Z91.19 Patient's noncompliance with other medical treatment and regimen

== ENCOUNTER 2016-06-13 17:56 | Emergency (ER) | payer OTHER ==
[~2016-06-13] VITALS: Ht 160 cm; Wt 63.6 kg
[~2016-06-13 17:56] MED LIST changes: +BUPR150T8 PO; -CITA40TA13 PO; +FERR-83 PO; +INSU100I13 SUBQ; -INSU100V7 SUBQ; +INSU500I SQ; -LOV100 SUBQ; +MYCC TRANSDERM; -NORE1PAT7 TD; -OMEP20CA11 PO; +POTA99TA21 PO; +[UNRECOGNIZED DRUG - CODE] MC
[2016-06-13 18:03] VITALS: BP 115/85; PULSE 91; RESP 16; O2SAT 100
[2016-06-13 18:33] LABS: BASOPHILS % (AUTO) 0.3 % (0-3); EOSINOPHILS % (AUTO) 0.8 % (0-5); MONOCYTES % (AUTO) 12.4 % (4-12); Mean Corpuscular Hemoglobin 29.2 pg (27.0-35.0); Mean Corpuscular Volume 88.1 fL (81-100); NEUTROPHILS % (AUTO) 60.9 % (40-74); Platelet Count 209 bil/L (150-400)
--- NOTE | 2016-06-13 20:08 | ED.REPORT ---
HPI-General Illness Date of Service June 13, 2016 ED Provider: Nima Montgomery MD History of Present Illness: OCC When I went to go see the patient, the room was empty. Patient left without being seen by the physician. Nursing Notes Stated Complaint: DIABETES Chief Complaint: General Complaint Nursing Notes Reviewed: Yes ([place], [place] not reconciled) Allergies: Coded Allergies: No Known Allergies (Unverified , 06/13/16) Scheduled Bupropion ER (Wellbutrin SR) 150 Mg Tablet.er 150 MG PO DAILY Ferrous Sulfate (Ferrous Sulfate) 325 Mg Tablet 325 MG PO DAILY Insulin Glargine (Lantus U100 Solostar Insulin Pen) 100 Unit/1 Ml Insuln.pen 20 UNIT SUBQ HS Insulin Regular, Human (Humulin R U-500 Kwikpen) 500/Ml (3) Insuln.pen 10 UNIT SQ TIDAC Nystatin (Nystatin) 60 Applic/15 Gm Cream 1 APPLIC TRANSDERM TID Potassium Gluconate (Potassium) 99 Mg Tablet 99 MG PO DAILY Scheduled PRN Hydromorphone (Hydromorphone) 2 Mg Tablet 2-4 MG PO q4 hours PRN PRN Pain General Time Seen by MD: 20:06 Chief Complaint Other Chart says hyperglycemia-I never got the interview the patient so I did not obtain a CC personally. 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 Past Surgical History Pancreatic drain placed Biliary stent Family History gall stones Smoking History Never Smoker Social History Alcohol Use: Denies alcohol use Drug Use: THC Other Social History: Good social support Ambulatory Status Independent Review of Systems Unable to obtain patient left the department Physical Exam Patient left without being seen, I did not get to perform physical exam Vital Signs Vital Signs Date Time Temp Pulse Resp B/P Pulse Ox O2 Delivery O2 Flow Rate FiO2 06/13/16 18:03 35.9 91 16 115/85 100 Room Air Initial VS: Reviewed, Vital signs normal Interpretation & Diagnostics Lab Results Interpretation Result Diagram: 06/13/16 1820 06/13/16 1820 Test 06/13/16 18:20 06/13/16 20:00 White Blood Count 6.4th/mm3 (3.8-10.1) Red Blood Count 4.11mil/mm3 (3.90-5.20) Hemoglobin 12.0g/dL (12.0-15.6) Hematocrit 36.2% (35.0-46.0) Mean Corpuscular Volume 88.1fL (81-100) Mean Corpuscular Hemoglobin 29.2pg (27.0-35.0) Mean Corpuscular Hemoglobin Concent 33.1% (32.0-37.0) Red Cell Distribution Width 14.6% (12.3-15.4) Platelet Count 209bil/L (150-400) Neutrophils (%) (Auto) 60.9% (40-74) Lymphocytes (%) (Auto) 25.3% (14-46) Monocytes (%) (Auto) 12.4% (4-12) Eosinophils (%) (Auto) 0.8% (0-5) Basophils (%) (Auto) 0.3% (0-3) Sodium Level 132mEq/L (134-144) Potassium Level 4.1mEq/L (3.5-5.2) Chloride Level 94mEq/L (97-108) Carbon Dioxide Level 26mmol/L (18-29) Blood Urea Nitrogen 16mg/dL (6-20) Creatinine 0.50mg/dL (0.57-1.00) Estimat Glomerular Filtration Rate 190mL/min (>59) Glucose Level 264mg/dL (60-99) Calcium Level 9.4mg/dL (8.5-10.1) Total Bilirubin < 0.2mg/dL (0.0-1.2) Aspartate Amino Transf (AST/SGOT) 17U/L (0-50) Alanine Aminotransferase (ALT/SGPT) 14U/L (0-32) Alkaline Phosphatase 67U/L (25-150) Total Protein 7.0g/dL (6.4-8.4) Albumin 3.6g/dL (3.4-5.0) Lipase 72U/L (13-60) Hold Terrell Top Tube Received (Received) Hold Urine Received (Received) Lab Results Interpretation: CBC normal CMP normal, mild hyperglycemia Urine had glucose block, but no ketones, patient Re-Eval/Medical Decision Med Decision/Clinical Course This is a patient who was just discharged yesterday after an admission for DKA. Apparently she had a glucose of 500 at home today, gave herself some additional insulin and came in and told the nurse she is feeling okay, was very concerned after the discharge instructions received from the hospitalist. However and Accu-Chek performed her glucose is already improved to 250s, and apparently she told the nurse that she felt well, she felt more comfortable at this point with a glucose artery being down that she did not really need to be seen-and says she was comfortable going home, continue to monitor sugar, making sure she took her new dose of Lantus-and so she left without being seen. Did have labs drawn prior to her departure, I reviewed those labs and aside from the mild hyperglycemia and no other acute abnormalities are evident. She does not have evidence of recurrent DKA. Source of Hx: Old records Discharge & Departure Primary Impression: Patient left without being seen Additional Impression: Hyperglycemia Referrals: OTHER,PHYSICIAN (PCP) Nima Montgomery MD June 13, 2016 20:08
== END 2016-06-13 20:33 | disposition left against medical advice (07) ==
LOC: SED 17:56
DX: Z53.21 Procedure and treatment not carried out due to patient leaving prior to being seen by health care provider (principal); E11.65 Type 2 diabetes mellitus with hyperglycemia

== ENCOUNTER 2016-09-08 15:31 | Emergency (ER) | payer OTHER ==
[~2016-09-08] VITALS: Ht 160 cm; Wt 63.6 kg
[2016-09-08 15:36] VITALS: BP 125/87; PULSE 104; RESP 20; O2SAT 97
[2016-09-08 16:45] LABS: BASOPHILS % (AUTO) 0.5 % (0-3); EOSINOPHILS % (AUTO) 0.1 % (0-5); MONOCYTES % (AUTO) 5.2 % (4-12); Mean Corpuscular Hemoglobin 29.2 pg (27.0-35.0); Mean Corpuscular Volume 83.9 fL (81-100); NEUTROPHILS % (AUTO) 76.4 % (40-74); Platelet Count 236 bil/L (150-400)
[2016-09-08] MEDS ORDERED: 0.9% Sodium Chloride 1,000 ML IV ONE ×2 (17:34→18:37)
--- NOTE | 2016-09-08 17:34 | ABG ---
DateTimeAnalyzed 17:28:00 -_ pH ____7.249 - pCO2 ___35.9__ -mmHg pO2 ___20.8__ -mmHg HCO3- ___15.2__ -mmol/L ABE __-11.1__ -mmol/L tHb ___16.7__ -g/dL O2Hb ___32.2__ -% COHb ____1.3__ -% MetHb ____0.8__ -% sO2 ___32.9__ -% FIO2 ___21.0__ -% Drawn By rn - Date/Time Notified____ 17:33:00 -_ Oxygen Device 1 _ROOM AIR - Notified By jj - Notified Whom dr andeline - B 761 -mmHg tO2 ____7.6__ -Vol% Jeremy test N/A -
[2016-09-08] MEDS ORDERED: Insulin LISPRO 300 Unit/3 mL Inj SUBQ ONE (17:50)
[2016-09-08] MEDS ORDERED: Ondansetron 2 mg/mL 2 mL Inj IVPUSH PRN (17:50)
[2016-09-08] MEDS ORDERED: HYDROmorphone 1 mg/mL Inj IVPUSH PRN (17:50)
[2016-09-08] MEDS ORDERED: Ondansetron 2 mg/mL 2 mL Inj IVPUSH ONE (17:50)
[2016-09-08] MEDS ORDERED: Insulin GLARgine 100 Unit/mL Syringe SUBQ ONE (18:40)
--- NOTE | 2016-09-08 18:40 | ED.REPORT ---
HPI-General Illness Date of Service Sep 08, 2016 ED Provider: Mickey Damian DO A 26 year old female with a history of necrotizing pancreatitis with subsequent diabetes, depression, cholelithiasis, DKA and pancreatic drain placement presents to the ED complaining of fatigue. The pt was diagnosed with diabetes last year following an episode of pancreatitis, but has been noncompliant with her medications for nearly two months. She has been fatigued and weak for two days, unable to lift heavy objects or walk far without feeling extremely tired. She is also experiencing nausea, vomiting and abdominal pain and feels like she may be relapsing into pancreatitis. The pt has an appointment for insulin pump placement next month. She is on medication for her depression and denies suicidal ideation. Nursing Notes Stated Complaint: RELAPSE OF PANCREATITIS Chief Complaint: Female Abdominal Pain Nursing Notes Reviewed: Yes Allergies: Coded Allergies: No Known Allergies (Unverified , 09/08/16) Scheduled Bupropion ER (Wellbutrin SR) 150 Mg Tablet.er 150 MG PO DAILY Ferrous Sulfate (Ferrous Sulfate) 325 Mg Tablet 325 MG PO DAILY Insulin Glargine (Lantus U100 Solostar Insulin Pen) 100 Unit/1 Ml Insuln.pen 20 UNIT SUBQ HS Insulin Regular, Human (Humulin R U-500 Kwikpen) 500/Ml (3) Insuln.pen 10 UNIT SQ TIDAC Nystatin (Nystatin) 60 Applic/15 Gm Cream 1 APPLIC TRANSDERM TID Potassium Gluconate (Potassium) 99 Mg Tablet 99 MG PO DAILY Scheduled PRN Hydromorphone (Hydromorphone) 2 Mg Tablet 2-4 MG PO q4 hours PRN PRN Pain General Time Seen by MD: 17:22 Chief Complaint Other (fatigue) Hx Obtained From: Patient Arrived By: Walk-in Sudden in Onset?: No Onset Occurred: 2 days ago Symptom Duration: Since onset Recent Healthcare: Recent doctor visit, Recent hospitalization Similar Sx Previous: Yes Past Medical History 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 Past Surgical History Pancreatic drain placed Biliary stent Family History gall stones Smoking History Never Smoker Social History Alcohol Use: Denies alcohol use Drug Use: THC Other Social History: Good social support Ambulatory Status Independent Review of Systems Full Review of Systems Constitutional: Reports: Fatigue, Weakness - generalized Respiratory: Denies: Non-productive cough, Shortness of breath Cardiovascular: Denies: Chest pain GI: Reports: Abdominal pain, Nausea, Vomiting Musculoskeletal: Denies: Back pain, Neck pain Psychiatric: Denies: Suicidal ideation Complete sys rev & neg: except as marked. Physical Exam Vital Signs Vital Signs Date Time Temp Pulse Resp B/P Pulse Ox O2 Delivery O2 Flow Rate FiO2 09/08/16 22:47 87 13 96/52 100 Room Air 09/08/16 21:17 36.6 85 13 98/58 97 Room Air 09/08/16 15:36 36.8 104 20 125/87 97 Room Air Initial VS: Reviewed General/Constitutional: Awake, Alert Head / Eyes: Atraumatic, Normocephalic, PERRL, EOMI ENT: Atraumatic, Airway patent, Mucous membranes moist Neck: Atraumatic, Supple, Full range of motion Respiratory / Chest: Atraumatic, Breath sounds NL, Breath sounds = bilat, No respiratory distress Cardiovascular: Regular rhythm, Heart sounds NL Heart Rate / Rhythm: Positive: Tachycardia Abdomen: Atraumatic, Soft, Non-tender Back: Atraumatic, Full range of motion Upper Extremities Upper Extremity / MS: Atraumatic, Full range of motion Lower Extremity / Pelvis / MS: Atraumatic, Full range of motion Skin: Atraumatic, Color NL, No rash, Warm, Dry Neurologic: Oriented X3, Speech NL, No motor deficits, No sensory deficits Psychiatric: Affect NL, Mood NL Interpretation & Diagnostics Lab Results Interpretation Result Diagram: 09/08/16 1608 09/08/16 1837 Test 09/08/16 16:08 09/08/16 18:37 09/08/16 19:41 White Blood Count 7.8th/mm3 (3.8-10.1) Red Blood Count 5.27mil/mm3 (3.90-5.20) Hemoglobin 15.4g/dL (12.0-15.6) Hematocrit 44.2% (35.0-46.0) Mean Corpuscular Volume 83.9fL (81-100) Mean Corpuscular Hemoglobin 29.2pg (27.0-35.0) Mean Corpuscular Hemoglobin Concent 34.8% (32.0-37.0) Red Cell Distribution Width 14.2% (12.3-15.4) Platelet Count 236bil/L (150-400) Neutrophils (%) (Auto) 76.4% (40-74) Lymphocytes (%) (Auto) 17.3% (14-46) Monocytes (%) (Auto) 5.2% (4-12) Eosinophils (%) (Auto) 0.1% (0-5) Basophils (%) (Auto) 0.5% (0-3) Osmolality 336 (275-300) Magnesium Level 2.0mg/dL (1.6-2.6) Lipase 51U/L (13-60) Hold Terrell Top Tube Received (Received) Ketones Small (Negative) Sodium Level 124mEq/L (134-144) Potassium Level 4.4mEq/L (3.5-5.2) Chloride Level 80mEq/L (97-108) Carbon Dioxide Level 13mmol/L (18-29) Blood Urea Nitrogen 12mg/dL (6-20) Creatinine 0.95mg/dL (0.57-1.00) Estimat Glomerular Filtration Rate 90mL/min (>59) Glucose Level 803mg/dL (60-99) Calcium Level 10.2mg/dL (8.5-10.1) Total Bilirubin 0.5mg/dL (0.0-1.2) Aspartate Amino Transf (AST/SGOT) 12U/L (0-50) Alanine Aminotransferase (ALT/SGPT) 16U/L (0-32) Alkaline Phosphatase 86U/L (25-150) Total Protein 8.6g/dL (6.4-8.4) Albumin 4.9g/dL (3.4-5.0) Hold Urine Received (Received) Re-Eval/Medical Decision Med Decision/Clinical Course Patient feels well at this point and commits to taking her insulin. I believe the complete cause of her visit to the ER today is related to medical noncompliance. She has not taken any insulin as a type I diabetic for the past 2 months. She does not have evidence of DKA today based off of her blood gas and serum ketones, but rather hyperosmolar hyperglycemia. Her sugars are correcting nicely with her medications. We did discussed a possible admission. She feels well and is comfortable going home rather than being admitted. She will follow-up with her PCP next week. She is scheduled to see an rail express clerk and would like to discuss with them in insulin pump. Believe a significant cause for her noncompliance includes depression. I spent a significant amount time trying to help her understand the importance of treatment for her diabetes and working to arrange a follow-up for her. I discussed with her mom these findings will work with her on taking her medications and make sure she sees her PCP. No evidence of pancreatitis found. Source of Hx: Old records Time of Eval: 18:24 Patient Status: Condition improved Re-Evaluation/Progress Note: Pt rechecked, who is resting. She is informed of the diagnosis and possible need for admission. The pt understands and agrees with this possibility. Time of Eval: 20:25 Patient Status: Condition improved Re-Evaluation/Progress Note: Pt rechecked with family present. She is informed of her diagnosis and the plan for discharge are discussed. The pt understands and agrees with the plan. All questions are addressed at this time. Counseled Regarding: Diagnosis, Lab results, Need for follow-up, When/why to return to ED Discharge & Departure Primary Impression: Hyperosmolar syndrome Additional Impressions: Hyperglycemia Depression Depression Type: unspecified Qualified Code: F32.9 - Major depressive disorder, single episode, unspecified Medical non-compliance Disposition: Home Discharge Condition All VS Reviewed: Yes Condition: Stable Patient Instructions: Diabetic Hyperglycemia (ED), Hyperosmolar Hyperglycemic State (ED), Type 1 Diabetes in Adults (ED) Additional Instructions: Thank you for allowing us to be a part of your care. Test your sugars before each meal and treat accordingly. Take your long-acting insulin every day. Keep your appointment with your rail express clerk and follow up on the insulin pump. Call your primary care physician to arrange a follow up appointment next week. Return to the emergency department if you develop any new or worsening symptoms including abdominal pain, nausea, vomiting, fever or other symptoms of concern to you. Please take another 10 units of insulin tonight before you go to bed. Referrals: OTHER,PHYSICIAN (PCP) Scribe Attestation Portions of this note were transcribed by Osman Sainz. I, Dr. Damian personally performed the history, physical exam and medical decision-making; I reviewed and confirmed the accuracy of the information in the transcribed note. Andelin,Mickey R DO Sep 08, 2016 18:40 OSMAN SAINZ Sep 08, 2016 19:01
[2016-09-08 21:17] VITALS: BP 98/58; PULSE 85; RESP 13; O2SAT 97
[2016-09-08 22:47] VITALS: BP 96/52; PULSE 87; RESP 13; O2SAT 100
== END 2016-09-08 22:31 | disposition home or self-care (01) ==
LOC: SED 15:31
DX: E11.00 Type 2 diabetes mellitus with hyperosmolarity without nonketotic hyperglycemic-hyperosmolar coma (NKHHC) (principal); E11.65 Type 2 diabetes mellitus with hyperglycemia; F32.9 Major depressive disorder, single episode, unspecified; R11.2 Nausea with vomiting, unspecified; R10.9 Unspecified abdominal pain; E13.10 Other specified diabetes mellitus with ketoacidosis without coma; Z79.4 Long term (current) use of insulin; Z91.19 Patient's noncompliance with other medical treatment and regimen; Z86.19 Personal history of other infectious and parasitic diseases
CPT/HCPCS: 36415; 80053; 81025; 82009; 82375; 82803; 83690; 83735; 83930; 85025; 96361; 96372; 96374; 96375; 99285; J1170; J1815; J2405; J7030